=== PATIENT | female | born 1960 | race Hispanic/Latino ===

== ENCOUNTER 2017-12-02 10:51 | Outpatient (CLI) | payer OTHER | END 2017-12-02 10:52 | disposition home or self-care (01) | LOC: BICULT 10:51 → ULT 10:52 | PROVIDERS: ATTEND Psychiatry & Neurology Neurology | DX: Z00.8 Encounter for other general examination (principal); I73.9 Peripheral vascular disease, unspecified; Z53.8 Procedure and treatment not carried out for other reasons | CPT/HCPCS: 93922 ==

== ENCOUNTER 2017-12-06 15:18 | Outpatient (CLI) | payer OTHER | END 2017-12-06 15:19 | disposition home or self-care (01) | LOC: BICRAD 15:18 | PROVIDERS: ATTEND Internal Medicine | DX: Z02.71 Encounter for disability determination (principal); M16.12 Unilateral primary osteoarthritis, left hip ==

== ENCOUNTER 2021-10-02 11:26 | Outpatient (CLI) | payer OTHER ==
[2021-10-02 13:05] LABS: Hemoglobin 9.4 g/dL (12.0-15.5); Mean Corpuscular HGB CONC 33.2 g/dL (32.0-36.0); Mean Corpuscular Hemoglobin 32.3 pg (27.0-33.0); Mean Corpuscular Volume 97.3 fl (81.6-98.3); Mean Platelet Volume 9.3 fl (7.4-10.4); Platelet Count 136 10x3/uL (150-450); RBC Distribution Width 13.7 % (11.5-14.5); Red Blood Cell (RBC) Count 2.91 10x6/uL (3.90-5.03); White Blood Cell (WBC) Count 4.9 10x3/uL (3.5-10.5)
[2021-10-02 13:18] LABS: INR-International Normal Ratio 1.2; PTT 30.3 sec (22.0-33.0)
[2021-10-02 13:24] LABS: Anion Gap 17 mmol/L (10-20); BUN (Urea Nitrogen) 24 mg/dL (9.8-20.1); Calc. Creatinine Clearance 0 mL/min (70-130); Calcium 9.1 mg/dL (7.8-10.44); Carbon Dioxide 25 mmol/L (22-29); Chloride 105 mmol/L (98-107); Glucose 196 mg/dL (70-105); Potassium 4.6 mmol/L (3.5-5.1); Sodium 142 mmol/L (136-145)
== END 2021-10-02 11:27 | disposition home or self-care (01) ==
LOC: LABBT 11:26
PROVIDERS: ATTEND Urology
DX: Z01.818 Encounter for other preprocedural examination (principal); N20.2 Calculus of kidney with calculus of ureter; Z20.822 Contact with and (suspected) exposure to COVID-19
CPT/HCPCS: 80048; 85027; 85610; 85730; 93005; 93010; U0003; U0005

== ENCOUNTER 2021-10-07 08:47 | Day surgery (SDC) | payer OTHER ==
[2021-10-06 09:57] VITALS: BMI 31.7
[2021-10-07] MEDS ORDERED: Iopamidol 30 ML ONE (11:04)
[2021-10-07] MEDS ORDERED: Fentanyl 100 MCG/2 ML VIAL ONE (11:06)
[2021-10-07] MEDS ORDERED: cefTRIAXone\\ROCEPHIN 2 GM VIAL ONE (11:19)
[2021-10-07] MEDS ORDERED: Sodium Chloride 0.9% 100 ML ONE (11:19)
[2021-10-07] MEDS ORDERED: Lidocaine 1% PF 5 ML VIAL ONE (11:24)
[2021-10-07] MEDS ORDERED: Ondansetron PF 4 MG/2 ML Vial ONE (11:24)
[2021-10-07] MEDS ORDERED: Rocuronium Bromide 10 MG/ML (10ML VIAL) ONE (11:24)
[2021-10-07] MEDS ORDERED: Glycopyrrolate 0.2 MG/ML 5 ML SYRINGE ONE (11:24)
[2021-10-07] MEDS ORDERED: Succinylcholine 200 MG/10 ml SYRINGE FS ONE (11:24)
[2021-10-07] MEDS ORDERED: SUGAMMADEX SODIUM 200 MG/2 ML VIAL ONE (12:15)
[2021-10-07] MEDS ORDERED: Oxybutynin 5 MG TAB ONE (12:45)
[2021-10-07] MEDS ORDERED: Phenazopyridine HCl 100 MG TAB ONE (12:45)
[2021-10-07] MEDS ORDERED: Promethazine HCl 25 MG/ML VIAL ONE (12:50)
== END 2021-10-07 17:24 | disposition home or self-care (01) ==
LOC: SDC 08:47
PROVIDERS: ATTEND Urology
PROC: 0T778DZ Dilation of Left Ureter with Intraluminal Device, Via Natural or Artificial Opening Endoscopic (ICD-10-PCS; principal; 2021-10-07)
DX: N20.1 Calculus of ureter (principal); N39.0 Urinary tract infection, site not specified; B96.20 Unspecified Escherichia coli [E. coli] as the cause of diseases classified elsewhere; I13.0 Hypertensive heart and chronic kidney disease with heart failure and stage 1 through stage 4 chronic kidney disease, or unspecified chronic kidney disease; E11.22 Type 2 diabetes mellitus with diabetic chronic kidney disease; N18.9 Chronic kidney disease, unspecified; I50.9 Heart failure, unspecified; I25.10 Atherosclerotic heart disease of native coronary artery without angina pectoris; K21.9 Gastro-esophageal reflux disease without esophagitis; I25.2 Old myocardial infarction; Q61.01 Congenital single renal cyst; I48.91 Unspecified atrial fibrillation; Z87.891 Personal history of nicotine dependence; Z79.02 Long term (current) use of antithrombotics/antiplatelets; Z79.2 Long term (current) use of antibiotics; Z79.4 Long term (current) use of insulin; Z79.82 Long term (current) use of aspirin; Z79.899 Other long term (current) drug therapy; Z88.1 Allergy status to other antibiotic agents; Z88.2 Allergy status to sulfonamides; Z91.048 Other nonmedicinal substance allergy status; Z95.0 Presence of cardiac pacemaker; Z95.1 Presence of aortocoronary bypass graft; Z95.5 Presence of coronary angioplasty implant and graft
CPT/HCPCS: 36416; 74018; 74420; C2617; J0696; J2405; J2550; J3010; J3490; Q9967

== ENCOUNTER 2022-01-15 10:58 | Outpatient (CLI) | payer OTHER | END 2022-01-15 10:59 | disposition home or self-care (01) | LOC: BICULT 10:58 | PROVIDERS: ATTEND Urology | DX: E11.22 Type 2 diabetes mellitus with diabetic chronic kidney disease (principal); N18.9 Chronic kidney disease, unspecified; N20.0 Calculus of kidney; E11.59 Type 2 diabetes mellitus with other circulatory complications; Z87.448 Personal history of other diseases of urinary system | CPT/HCPCS: 76770 ==

== ENCOUNTER 2022-06-11 14:57 | Inpatient (IN) | payer OTHER ==
[2022-06-11] MEDS ORDERED: Acetaminophen 325 MG TAB ONE (16:20)
[2022-06-11 16:34] LABS: #Basophils 0.1 thou/uL (0.0-0.2); #Eosinphils 0.1 thou/uL (0.0-0.7); #Lymphocytes 0.9 thou/uL (1.20-3.40); #Monocytes 0.3 thou/uL (0.11-0.59); #Neutrophils 5.1 thou/uL (1.40-6.50); %Lymphocytes 13.5 % (21.0-51.0); %Monocytes 4.5 % (0.0-10.0); Hemoglobin 6.3 g/dL (12.0-16.0); Mean Corpuscular Hemoglobin 34.1 pg (27.0-31.0); Mean Platelet Volume 7.5 fL (7.4-10.4); Platelet Count 107 10x3/uL (130-400); Red Blood Cell (RBC) Count 1.86 mill/uL (4.20-5.40); White Blood Cell (WBC) Count 6.5 10x3/uL (4.8-10.8)
[2022-06-11 16:42] LABS: INR-International Normal Ratio 1.8; PTT 38.8 sec (22.9-36.1); Prothrombin Time 21.2 sec (12.0-14.7)
[2022-06-11 16:50] LABS: ALT (SGPT) 14 U/L (8-55); AST (SGOT) 13 U/L (5-34); Albumin 2.5 g/dL (3.5-5.0); Alkaline Phosphatase 107 U/L (40-110); Anion Gap 13 mmol/L (10-20); BUN (Urea Nitrogen) 34 mg/dL (9.8-20.1); Bilirubin, Total 1.4 mg/dL (0.2-1.2); Calc. Creatinine Clearance 0 mL/min (70-130); Carbon Dioxide 20 mmol/L (22-29); Chloride 113 mmol/L (98-107); Estimated GFR 28; Globulin 3.2 g/dL (2.4-3.5); Glucose 316 mg/dL (70-105); Protein, Total 5.7 g/dL (6.0-8.3); Sodium 140 mmol/L (136-145)
[2022-06-11] MEDS ORDERED: Insulin Regular 300 UNITS/3 ML VIAL ONE (17:47)
[2022-06-11] MEDS ORDERED: Dextrose 50% Abboject 50 ML SYRINGE ONE (17:48)
[2022-06-11] MEDS ORDERED: Dextrose 5% in Water 1,000 ML IV PRN (17:57)
[2022-06-11] MEDS ORDERED: Dextrose 50% Abboject 50 ML SYRINGE SLOW IVP PRN (17:57)
[2022-06-11] MEDS ORDERED: Ondansetron ODT 4 MG TAB PO PRN (17:57)
[2022-06-11] MEDS ORDERED: Ondansetron PF 4 MG/2 ML Vial IVP PRN (17:57)
[2022-06-11] MEDS ORDERED: Acetaminophen 500 MG TAB PO PRN (18:09)
[2022-06-11] MEDS ORDERED: Pantoprazole 40 MG VIAL IVP SCH ×3 (18:15→22:45)
[2022-06-11 18:26] LABS: Anion Gap 11 mmol/L (10-20); BUN (Urea Nitrogen) 36 mg/dL (9.8-20.1); Calc. Creatinine Clearance 0 mL/min (70-130); Carbon Dioxide 22 mmol/L (22-29); Chloride 112 mmol/L (98-107); Estimated GFR 28; Glucose 305 mg/dL (70-105); Sodium 139 mmol/L (136-145)
[2022-06-11 18:29] LABS: Hemoglobin A1c 8.4 % (4.0-6.0)
[2022-06-11 18:29] LABS: Potassium 6.4 mmol/L (3.5-5.1)
[2022-06-11] MEDS ORDERED: cefTRIAXone\\ROCEPHIN 2 GM VIAL ONE (18:40)
[2022-06-11] MEDS ORDERED: Insulin Regular 300 UNITS/3 ML VIAL IVP SCH (19:00)
[2022-06-11] MEDS ORDERED: Ondansetron PF 4 MG/2 ML Vial ONE (19:31)
[2022-06-11] MEDS: Pantoprazole 40 MG VIAL IVP SCH (21:37)
[2022-06-12 00:34] LABS: Hemoglobin 9.6 g/dL (12.0-16.0); Platelet Count 90 10x3/uL (130-400)
[2022-06-12 00:55] LABS: Anion Gap 12 mmol/L (10-20); BUN (Urea Nitrogen) 45 mg/dL (9.8-20.1); Calc. Creatinine Clearance 20 mL/min (70-130); Calcium 8.2 mg/dL (7.8-10.44); Carbon Dioxide 21 mmol/L (22-29); Chloride 113 mmol/L (98-107); Estimated GFR 27; Glucose 281 mg/dL (70-105); Sodium 140 mmol/L (136-145)
[2022-06-12 00:58] LABS: Potassium 6.2 mmol/L (3.5-5.1)
[2022-06-12] MEDS ORDERED: CALCIUM GLUC 1 GM/NS 50 ML 1 GM in Premix Bag 1 BAG IVPB SCH (01:15)
[2022-06-12] MEDS: Sodium Chloride 0.9% 1,000 ML IV SCH ×2 (01:56→14:19)
[2022-06-12 02:10] LABS: Magnesium 1.6 mg/dL (1.6-2.6)
[2022-06-12 05:53] LABS: Hemoglobin 9.3 g/dL (12.0-16.0)
[2022-06-12 06:09] LABS: Anion Gap 10 mmol/L (10-20); BUN (Urea Nitrogen) 53 mg/dL (9.8-20.1); Calc. Creatinine Clearance 21 mL/min (70-130); Calcium 8.3 mg/dL (7.8-10.44); Carbon Dioxide 20 mmol/L (22-29); Chloride 116 mmol/L (98-107); Estimated GFR 28; Glucose 249 mg/dL (70-105); Sodium 140 mmol/L (136-145)
[2022-06-12] MEDS: Pantoprazole 40 MG VIAL IVP SCH ×2 (08:54→20:36)
[2022-06-12 16:54] LABS: Anion Gap 11 mmol/L (10-20); BUN (Urea Nitrogen) 56 mg/dL (9.8-20.1); Calc. Creatinine Clearance 19 mL/min (70-130); Calcium 8.3 mg/dL (7.8-10.44); Carbon Dioxide 21 mmol/L (22-29); Chloride 116 mmol/L (98-107); Estimated GFR 25; Glucose 233 mg/dL (70-105); Sodium 143 mmol/L (136-145)
[2022-06-12] MEDS ORDERED: Octreotide Acetate 1,250 MCG in Sodium Chloride 0.9% 250 ML 250 ML IVPB SCH (17:00)
[2022-06-12] MEDS ORDERED: Octreotide Acetate 50 MCG/ML AMP SLOW IVP SCH (17:00)
[2022-06-12] MEDS: HumaLOG 300 UNITS/3 ML VIAL SC PRN ×2 (17:39→20:49)
[2022-06-12] MEDS: Gabapentin 300 MG CAP PO SCH (20:35)
[2022-06-13] MEDS: Sodium Chloride 0.9% 1,000 ML IV SCH ×3 (00:35→18:15)
[2022-06-13 05:15] LABS: #Eosinphils 0.1 thou/uL (0.0-0.7); #Lymphocytes 1.3 thou/uL (1.20-3.40); #Monocytes 0.3 thou/uL (0.11-0.59); #Neutrophils 3.1 thou/uL (1.40-6.50); %Basophils 0.8 % (0.0-1.0); %Lymphocytes 26.8 % (21.0-51.0); %Monocytes 6.4 % (0.0-10.0); Hemoglobin 8.4 g/dL (12.0-16.0); Mean Corpuscular HGB CONC 33.7 g/dL (32.0-36.0); Mean Corpuscular Hemoglobin 32.7 pg (27.0-31.0); Mean Corpuscular Volume 97.2 fl (78.0-98.0); Mean Platelet Volume 7.4 fL (7.4-10.4); Platelet Count 92 10x3/uL (130-400); RBC Distribution Width 14.2 % (11.5-14.5); Red Blood Cell (RBC) Count 2.58 mill/uL (4.20-5.40)
[2022-06-13 05:34] LABS: Anion Gap 11 mmol/L (10-20); BUN (Urea Nitrogen) 53 mg/dL (9.8-20.1); Calc. Creatinine Clearance 20 mL/min (70-130); Calcium 7.7 mg/dL (7.8-10.44); Carbon Dioxide 17 mmol/L (22-29); Chloride 117 mmol/L (98-107); Estimated GFR 26; Glucose 141 mg/dL (70-105); Iron 65 ug/dL (50-170); Iron Binding Capacity, Total 281 mcg/dL (265-497); Potassium 5.1 mmol/L (3.5-5.1); Sodium 140 mmol/L (136-145)
[2022-06-13 05:43] VITALS: BMI 37.4
[2022-06-13 05:51] LABS: Ferritin 84.27 ng/mL (10-291)
[2022-06-13 06:02] LABS: HBSAB Concentration Less than 8.00 mIU/mL; Hep B Surf AB Non-Reactive (NonReactive); Hep B Surf Ag Non-Reactive S/CO (NonReactive); Hep C IgG Ab Non-Reactive (NonReactive); Hep C Index 0.29 S/CO (0-0.79)
[2022-06-13] MEDS: Pantoprazole 40 MG VIAL IVP SCH ×2 (08:06→21:48)
[2022-06-13] MEDS ORDERED: Lidocaine 1% MPF 2 ML VIAL ONE (12:17)
[2022-06-13] MEDS ORDERED: PROPOFOL 200 MG/20 ML VIAL ONE (13:15)
[2022-06-13] MEDS ORDERED: Ondansetron HCl/PF 4 MG/2 ML Vial IVP PRN (13:32)
[2022-06-13] MEDS ORDERED: Promethazine HCl 25 MG/ML VIAL IM PRN (13:32)
[2022-06-13] MEDS ORDERED: Propranolol 10 MG TAB PO SCH (14:22)
[2022-06-13] MEDS: HumaLOG 300 UNITS/3 ML VIAL SC PRN ×2 (18:17→21:49)
[2022-06-13] MEDS: Gabapentin 300 MG CAP PO SCH (21:48)
[2022-06-13] MEDS: Propranolol 10 MG TAB PO SCH (21:50)
[2022-06-14 05:14] LABS: #Eosinphils 0.2 thou/uL (0.0-0.7); #Lymphocytes 1.4 thou/uL (1.20-3.40); #Monocytes 0.3 thou/uL (0.11-0.59); #Neutrophils 3.1 thou/uL (1.40-6.50); %Basophils 0.8 % (0.0-1.0); %Eosinophils 3.7 % (0.0-10.0); %Lymphocytes 27.9 % (21.0-51.0); %Monocytes 6.6 % (0.0-10.0); %Neutrophils 61.1 % (42.0-75.0); Hemoglobin 8.2 g/dL (12.0-16.0); Mean Corpuscular HGB CONC 34.2 g/dL (32.0-36.0); Mean Corpuscular Hemoglobin 33.2 pg (27.0-31.0); Mean Corpuscular Volume 97.1 fl (78.0-98.0); Mean Platelet Volume 7.4 fL (7.4-10.4); Platelet Count 88 10x3/uL (130-400); RBC Distribution Width 14.1 % (11.5-14.5); Red Blood Cell (RBC) Count 2.47 mill/uL (4.20-5.40); White Blood Cell (WBC) Count 5.1 10x3/uL (4.8-10.8)
[2022-06-14 05:25] VITALS: TEMP 98.4
[2022-06-14 05:36] LABS: Anion Gap 12 mmol/L (10-20); BUN (Urea Nitrogen) 47 mg/dL (9.8-20.1); Calc. Creatinine Clearance 37 mL/min (70-130); Calcium 7.6 mg/dL (7.8-10.44); Carbon Dioxide 17 mmol/L (22-29); Chloride 117 mmol/L (98-107); Estimated GFR 25; Glucose 144 mg/dL (70-105); Potassium 4.7 mmol/L (3.5-5.1); Sodium 141 mmol/L (136-145)
[2022-06-14 05:56] LABS: HBSAB Concentration Less than 8.00 mIU/mL; Hep B Core Total Ab Non-Reactive (NonReactive); Hep B Core Total Index 0.12 S/CO (0-0.79); Hep B Surf AB Non-Reactive (NonReactive)
[2022-06-14 08:34] VITALS: BP 128/60
[2022-06-14] MEDS: Pantoprazole 40 MG VIAL IVP SCH (10:14)
[2022-06-14] MEDS: Propranolol 10 MG TAB PO SCH (10:14)
[2022-06-14 14:37] LABS: Alpha-1-Antitrypsin 155 mg/dL (101-187)
[2022-06-17 12:02] LABS: EliA Vaculitis New Method **** NEW METHOD ****; Mitochondrial Ab 1.8 U/mL (<4 Negative)
== END 2022-06-14 13:00 | disposition home or self-care (01) | DRG 442 ==
LOC: ERS 14:57 → 2SW 17:54
PROVIDERS: ADMIT Internal Medicine; ATTEND Family Medicine
PROC: 30233N1 Transfusion of Nonautologous Red Blood Cells into Peripheral Vein, Percutaneous Approach (ICD-10-PCS; principal; 2022-06-11)
PROC: 0DB58ZX Excision of Esophagus, Via Natural or Artificial Opening Endoscopic, Diagnostic (ICD-10-PCS; 2022-06-13)
DX: K76.6 Portal hypertension (principal); D62 Acute posthemorrhagic anemia; K92.0 Hematemesis; N17.9 Acute kidney failure, unspecified; I48.20 Chronic atrial fibrillation, unspecified; I13.0 Hypertensive heart and chronic kidney disease with heart failure and stage 1 through stage 4 chronic kidney disease, or unspecified chronic kidney disease; I85.10 Secondary esophageal varices without bleeding; K22.10 Ulcer of esophagus without bleeding; Z20.822 Contact with and (suspected) exposure to COVID-19; E87.5 Hyperkalemia; N18.9 Chronic kidney disease, unspecified; E11.22 Type 2 diabetes mellitus with diabetic chronic kidney disease; E11.42 Type 2 diabetes mellitus with diabetic polyneuropathy; I25.10 Atherosclerotic heart disease of native coronary artery without angina pectoris; I50.9 Heart failure, unspecified; I45.81 Long QT syndrome; K74.60 Unspecified cirrhosis of liver; I86.4 Gastric varices; K31.89 Other diseases of stomach and duodenum; Z95.5 Presence of coronary angioplasty implant and graft; Z95.1 Presence of aortocoronary bypass graft; Z95.0 Presence of cardiac pacemaker; Z87.440 Personal history of urinary (tract) infections; Z91.048 Other nonmedicinal substance allergy status; Z88.2 Allergy status to sulfonamides; Z79.82 Long term (current) use of aspirin; Z79.02 Long term (current) use of antithrombotics/antiplatelets; Z79.899 Other long term (current) drug therapy; Z79.4 Long term (current) use of insulin; Z90.49 Acquired absence of other specified parts of digestive tract; Z90.710 Acquired absence of both cervix and uterus; Z82.3 Family history of stroke; Z82.49 Family history of ischemic heart disease and other diseases of the circulatory system; Z80.0 Family history of malignant neoplasm of digestive organs; Z83.3 Family history of diabetes mellitus
CPT/HCPCS: 36415; 36416; 36430; 76705; 80048; 80053; 82103; 82105; 82728; 83036; 83516; 83540; 83550; 83735; 83880; 85014; 85018; 85025; 85610; 85730; 86015; 86704; 86706; 86708; 86803; 86850; 86900; 86901; 87340; 88305; 88342; 93005; 93010; 96360; 96374; 96375; C9113; J0611; J0696; J0780; J1815; J2354; J2405; J2704; J7050; J7999; P9016; U0003; U0005

== ENCOUNTER 2023-08-29 09:11 | Inpatient (IN) | payer SELFPAY ==
[2023-08-29] MEDS ORDERED: Heparin 10,000 UNITS/ 10 ML VIAL ONE (10:27)
[2023-08-29 11:53] LABS: Bilirubin Small (Negative); Blood, Urine Moderate (Negative); Glucose, Urine (Dipstick) 500 mg/dL (Negative); Ketone, Urine Negative (Negative); Leukocyte Negative (Negative); Nitrite Negative (Negative); Specific Gravity, Urine 1.015 (1.005-1.030); Urobilinogen 0.2 mg/dL (Less than 2); pH, Urine 7.5 (5.0-9.0)
[2023-08-29 12:00] LABS: INR-International Normal Ratio 1.5; PTT 45.4 sec (22.9-36.1); Prothrombin Time 17.8 sec (12.0-14.7)
[2023-08-29 12:04] LABS: Bacteria/HPF None Seen HPF (None Seen); CAUTI Indications for Culture Alt mental st,lethar; RBC/HPF 0-3 HPF (0-3); Squamous Epithelial 0-3 HPF (0-3); WBC/HPF 0-3 HPF (0-3)
[2023-08-29 12:06] LABS: ALT (SGPT) 18 U/L (8-55); AST (SGOT) 26 U/L (5-34); Albumin 2.7 g/dL (3.4-4.8); Alkaline Phosphatase 220 U/L (40-110); Anion Gap 13 mmol/L (10-20); BUN (Urea Nitrogen) 16 mg/dL (9.8-20.1); Bilirubin, Total 1.7 mg/dL (0.2-1.2); Calc. Creatinine Clearance 0 mL/min (70-130); Calcium 8.1 mg/dL (7.8-10.44); Carbon Dioxide 27 mmol/L (23-31); Chloride 101 mmol/L (98-107); Estimated GFR 30; Globulin 3.6 g/dL (2.4-3.5); Glucose 148 mg/dL (80-115); Lipase 39 U/L (8-78); Potassium 3.6 mmol/L (3.5-5.1); Protein, Total 6.3 g/dL (5.8-8.1); Sodium 137 mmol/L (136-145)
[2023-08-29 12:06] LABS: Clarity Clear (Clear); Protein, Urine (Dipstick) 300 mg/dL (Neg-Trace)
[2023-08-29 12:09] LABS: Urine Culture Reflex No No
[2023-08-29 12:09] LABS: Troponin I 0.064 ng/mL (< 0.028)
[2023-08-29 12:09] LABS: #Basophils 0.04 10x3/uL (0.0-0.2); %Basophils 0.9 % (0.0-1.0); %Eosinophils 1.8 % (0.0-10.0); %Lymphocytes 10.2 % (21.0-51.0); %Neutrophils 79.9 % (42.0-75.0); Hematocrit 29.7 % (36.0-47.0); Hemoglobin 9.7 g/dL (12.0-16.0); Mean Corpuscular HGB CONC 32.7 g/dL (32.0-36.0); Mean Corpuscular Hemoglobin 32.3 pg (27.0-31.0); Mean Platelet Volume 9.4 fL (7.4-10.4); Platelet Count 70 10x3/uL (130-400); RBC Distribution Width 13.4 % (11.5-14.5)
[2023-08-29] MEDS ORDERED: Furosemide 40 MG (4 mL) VIAL ONE (12:36)
[2023-08-29] MEDS ORDERED: Aspirin Chewable 81 MG TAB ONE (13:26)
[2023-08-29] MEDS ORDERED: Dextrose 50% Abboject 50 ML SYRINGE SLOW IVP PRN (14:11)
[2023-08-29] MEDS ORDERED: hydrALAZINE 20 MG/ML VIAL SLOW IVP PRN (14:11)
[2023-08-29] MEDS ORDERED: Dextrose 5% in Water 1,000 ML IV PRN (14:11)
[2023-08-29] MEDS ORDERED: Glucagon 1 MG/ML KIT IM PRN (14:11)
[2023-08-29] MEDS ORDERED: Acetaminophen 325 MG TAB PO PRN (14:11)
[2023-08-29 15:34] LABS: Troponin I 0.103 ng/mL (< 0.028)
[2023-08-29 16:26] VITALS: BMI 27.3
[2023-08-29] MEDS: Heparin 5,000 UNITS/ML VIAL SC SCH (17:38)
[2023-08-29 19:04] LABS: Troponin I 0.114 ng/mL (< 0.028)
[2023-08-29] MEDS: HumaLOG 300 UNITS/3 ML VIAL SC PRN (21:06)
[2023-08-30 05:17] LABS: #Basophils 0.03 10x3/uL (0.0-0.2); %Basophils 0.6 % (0.0-1.0); %Eosinophils 2.8 % (0.0-10.0); %Lymphocytes 17.9 % (21.0-51.0); %Monocytes 7.3 % (0.0-10.0); Hematocrit 28.3 % (36.0-47.0); Hemoglobin 9.2 g/dL (12.0-16.0); Mean Corpuscular HGB CONC 32.5 g/dL (32.0-36.0); Mean Corpuscular Hemoglobin 32.4 pg (27.0-31.0); Mean Corpuscular Volume 99.6 fL (78.0-98.0); Mean Platelet Volume 9.9 fL (7.4-10.4); Platelet Count 78 10x3/uL (130-400); RBC Distribution Width 13.6 % (11.5-14.5); Red Blood Cell (RBC) Count 2.84 mill/uL (4.20-5.40)
[2023-08-30 05:32] LABS: Anion Gap 12 mmol/L (10-20); BUN (Urea Nitrogen) 21 mg/dL (9.8-20.1); Calc. Creatinine Clearance 26 mL/min (70-130); Carbon Dioxide 29 mmol/L (23-31); Chloride 100 mmol/L (98-107); Estimated GFR 22; Glucose 197 mg/dL (80-115); Potassium 4.4 mmol/L (3.5-5.1); Sodium 137 mmol/L (136-145)
[2023-08-30] MEDS: Ondansetron PF 4 MG/2 ML Vial IVP PRN (08:06)
[2023-08-30] MEDS: EPOETIN ALFA-EPBX (ESRD) 10,000 UNITS/ML VIAL SC SCH (10:52)
[2023-08-30 11:52] LABS: HBSAB Concentration 39.71 mIU/mL; Hep B Core Total Ab NONREACTIVE (NonReactive); Hep B Core Total Index 0.18 S/CO (0-0.79); Hep B Surf AB REACTIVE (NonReactive); Hep B Surf Ag NONREACTIVE S/CO (NonReactive); Hep C IgG Ab NONREACTIVE S/CO (NonReactive); Hep C Index 0.44 S/CO (0-0.79)
[2023-08-30] MEDS: HumaLOG 300 UNITS/3 ML VIAL SC PRN (12:44)
[2023-08-31 04:38] LABS: #Basophils 0.04 10x3/uL (0.0-0.2); %Basophils 0.8 % (0.0-1.0); %Eosinophils 4.4 % (0.0-10.0); %Lymphocytes 19.3 % (21.0-51.0); %Monocytes 9.1 % (0.0-10.0); Hematocrit 28.5 % (36.0-47.0); Hemoglobin 9.1 g/dL (12.0-16.0); Mean Corpuscular HGB CONC 31.9 g/dL (32.0-36.0); Mean Corpuscular Hemoglobin 32.3 pg (27.0-31.0); Mean Corpuscular Volume 101.1 fL (78.0-98.0); Mean Platelet Volume 9.7 fL (7.4-10.4); Platelet Count 89 10x3/uL (130-400); RBC Distribution Width 13.7 % (11.5-14.5); Red Blood Cell (RBC) Count 2.82 mill/uL (4.20-5.40)
[2023-08-31 04:45] LABS: Anion Gap 12 mmol/L (10-20); BUN (Urea Nitrogen) 30 mg/dL (9.8-20.1); Calc. Creatinine Clearance 21 mL/min (70-130); Calcium 7.8 mg/dL (7.8-10.44); Carbon Dioxide 27 mmol/L (23-31); Chloride 102 mmol/L (98-107); Estimated GFR 17; Glucose 162 mg/dL (80-115); Potassium 4.5 mmol/L (3.5-5.1); Sodium 136 mmol/L (136-145)
[2023-08-31 05:17] LABS: Platelet Adequacy Comment Platelets Decreased
[2023-08-31] MEDS: diphenhydrAMINE 25 MG CAP PO SCH (22:12)
[2023-09-01 11:22] VITALS: BP 177/76; TEMP 98.3
[2023-09-02] MEDS ORDERED: Heparin 10,000 UNITS/ 10 ML VIAL ONE (10:00)
== END 2023-09-01 14:45 | disposition home or self-care (01) | DRG 312 ==
LOC: ERS 09:11 → ERHOLD 13:14 → 2NO 16:06
PROVIDERS: ADMIT Internal Medicine; ATTEND Internal Medicine
DX: R55 Syncope and collapse (principal); N18.6 End stage renal disease; I13.0 Hypertensive heart and chronic kidney disease with heart failure and stage 1 through stage 4 chronic kidney disease, or unspecified chronic kidney disease; E11.22 Type 2 diabetes mellitus with diabetic chronic kidney disease; I25.10 Atherosclerotic heart disease of native coronary artery without angina pectoris; K74.60 Unspecified cirrhosis of liver; I48.91 Unspecified atrial fibrillation; E87.6 Hypokalemia; Z90.49 Acquired absence of other specified parts of digestive tract; Z99.2 Dependence on renal dialysis; Z79.4 Long term (current) use of insulin; Z88.2 Allergy status to sulfonamides; Z79.899 Other long term (current) drug therapy; Z63.1 Problems in relationship with in-laws; Z95.1 Presence of aortocoronary bypass graft; Z95.9 Presence of cardiac and vascular implant and graft, unspecified; Z95.0 Presence of cardiac pacemaker
CPT/HCPCS: 36415; 36416; 51701; 71045; 80048; 80053; 81001; 82140; 83690; 83735; 83880; 84443; 84484; 85025; 85610; 85730; 86704; 86706; 86803; 87340; 93005; 93306; 96374; J1644; J1815; J1940; J2405; Q5105

== ENCOUNTER 2023-09-30 08:13 | Emergency (ER) | payer SELFPAY ==
[2023-09-30] MEDS ORDERED: Prochlorperazine 10 MG/2 ML VIAL ONE (08:39)
[2023-09-30 08:57] LABS: #Basophils 0.05 10x3/uL (0.0-0.2); %Eosinophils 4.8 % (0.0-10.0); %Monocytes 8.3 % (0.0-10.0); %Neutrophils 70.5 % (42.0-75.0); Hematocrit 31.5 % (36.0-47.0); Hemoglobin 10.6 g/dL (12.0-16.0); Mean Corpuscular HGB CONC 33.7 g/dL (32.0-36.0); Mean Corpuscular Hemoglobin 32.6 pg (27.0-31.0); Mean Corpuscular Volume 96.9 fL (78.0-98.0); Mean Platelet Volume 9.6 fL (7.4-10.4); Platelet Count 80 10x3/uL (130-400); RBC Distribution Width 12.8 % (11.5-14.5); Red Blood Cell (RBC) Count 3.25 mill/uL (4.20-5.40)
[2023-09-30 09:12] LABS: ALT (SGPT) 23 U/L (8-55); AST (SGOT) 22 U/L (5-34); Albumin 2.5 g/dL (3.4-4.8); Alkaline Phosphatase 202 U/L (40-110); Anion Gap 8 mmol/L (10-20); BUN (Urea Nitrogen) 18 mg/dL (9.8-20.1); Bilirubin, Total 1.6 mg/dL (0.2-1.2); Calc. Creatinine Clearance 0 mL/min (70-130); Calcium 7.9 mg/dL (7.8-10.44); Carbon Dioxide 26 mmol/L (23-31); Chloride 101 mmol/L (98-107); Estimated GFR 29; Globulin 3.7 g/dL (2.4-3.5); Glucose 198 mg/dL (80-115); Lipase 68 U/L (8-78); Potassium 3.4 mmol/L (3.5-5.1); Protein, Total 6.2 g/dL (5.8-8.1); Sodium 132 mmol/L (136-145)
== END 2023-09-30 10:15 | disposition home or self-care (01) ==
LOC: ERS 08:13
DX: I95.9 Hypotension, unspecified (principal); K74.60 Unspecified cirrhosis of liver; R94.31 Abnormal electrocardiogram [ECG] [EKG]; I12.0 Hypertensive chronic kidney disease with stage 5 chronic kidney disease or end stage renal disease; N18.6 End stage renal disease; E11.22 Type 2 diabetes mellitus with diabetic chronic kidney disease; Z95.0 Presence of cardiac pacemaker; Z79.4 Long term (current) use of insulin; Z99.2 Dependence on renal dialysis
CPT/HCPCS: 36415; 36416; 70450; 80053; 83690; 83735; 84443; 85025; 93005; 94760; 96374; J0780

== ENCOUNTER 2024-01-04 09:31 | Inpatient (IN) | payer MEDICARE, SELFPAY ==
[2024-01-04 10:24] LABS: #Basophils 0.04 10x3/uL (0.0-0.2); %Basophils 0.9 % (0.0-1.0); %Eosinophils 2.7 % (0.0-10.0); %Lymphocytes 19.6 % (21.0-51.0); %Monocytes 7.4 % (0.0-10.0); %Neutrophils 68.5 % (42.0-75.0); Hematocrit 30.5 % (36.0-47.0); Hemoglobin 9.9 g/dL (12.0-16.0); Mean Corpuscular HGB CONC 32.5 g/dL (32.0-36.0); Mean Corpuscular Hemoglobin 32.4 pg (27.0-31.0); Mean Corpuscular Volume 99.7 fL (78.0-98.0); Mean Platelet Volume 9.8 fL (7.4-10.4); Platelet Count 70 10x3/uL (130-400); RBC Distribution Width 13.7 % (11.5-14.5); Red Blood Cell (RBC) Count 3.06 mill/uL (4.20-5.40)
[2024-01-04 10:47] LABS: ALT (SGPT) 21 U/L (8-55); AST (SGOT) 18 U/L (5-34); Albumin 2.2 g/dL (3.4-4.8); Alkaline Phosphatase 136 U/L (40-110); Anion Gap 11 mmol/L (10-20); BUN (Urea Nitrogen) 10 mg/dL (9.8-20.1); Bilirubin, Total 1.5 mg/dL (0.2-1.2); Calc. Creatinine Clearance 0 mL/min (70-130); Carbon Dioxide 28 mmol/L (23-31); Chloride 103 mmol/L (98-107); Estimated GFR 27; Globulin 3.8 g/dL (2.4-3.5); Glucose 155 mg/dL (80-115); Potassium 3.4 mmol/L (3.5-5.1); Sodium 139 mmol/L (136-145)
[2024-01-04 11:10] LABS: Troponin I 0.038 ng/mL (< 0.028)
[2024-01-04] MEDS ORDERED: Acetaminophen 325 MG TAB PO PRN (12:42)
[2024-01-04] MEDS ORDERED: traMADol HCl 50 MG TAB PO PRN (12:42)
[2024-01-04] MEDS ORDERED: Dextrose 50% Abboject 50 ML SYRINGE SLOW IVP PRN (12:52)
[2024-01-04] MEDS ORDERED: Glucagon 1 MG/ML KIT IM PRN (12:52)
[2024-01-04] MEDS ORDERED: Dextrose 5% in Water 1,000 ML IV PRN (12:52)
[2024-01-04] MEDS ORDERED: EPOETIN ALFA-EPBX (ESRD) 10,000 UNITS/ML VIAL FS SCH (17:30)
[2024-01-04] MEDS: EPOETIN ALFA-EPBX (ESRD) 10,000 UNITS/ML VIAL SC SCH (18:08)
[2024-01-04 19:33] VITALS: BMI 26.9
[2024-01-04 19:53] LABS: #Basophils 0.05 10x3/uL (0.0-0.2); %Basophils 1.2 % (0.0-1.0); %Eosinophils 1.4 % (0.0-10.0); %Lymphocytes 17.9 % (21.0-51.0); %Monocytes 9.2 % (0.0-10.0); %Neutrophils 70.1 % (42.0-75.0); Hematocrit 35.9 % (36.0-47.0); Hemoglobin 10.7 g/dL (12.0-16.0); Mean Corpuscular HGB CONC 29.8 g/dL (32.0-36.0); Mean Corpuscular Hemoglobin 33.2 pg (27.0-31.0); Mean Corpuscular Volume 111.5 fL (78.0-98.0); Mean Platelet Volume 12.4 fL (7.4-10.4); Platelet Count 101 10x3/uL (130-400); RBC Distribution Width 14.2 % (11.5-14.5); Red Blood Cell (RBC) Count 3.22 mill/uL (4.20-5.40)
[2024-01-04] MEDS: Insulin Lispro 100 UNIT/ML 10 ML VIAL SC PRN (22:00)
[2024-01-05 06:07] LABS: #Basophils 0.04 10x3/uL (0.0-0.2); %Basophils 0.8 % (0.0-1.0); %Eosinophils 2.9 % (0.0-10.0); %Lymphocytes 20.8 % (21.0-51.0); %Neutrophils 63.9 % (42.0-75.0); Hematocrit 31.5 % (36.0-47.0); Hemoglobin 10.1 g/dL (12.0-16.0); Mean Corpuscular HGB CONC 32.1 g/dL (32.0-36.0); Mean Corpuscular Hemoglobin 32.9 pg (27.0-31.0); Mean Corpuscular Volume 102.6 fL (78.0-98.0); Mean Platelet Volume 10.2 fL (7.4-10.4); Platelet Count 73 10x3/uL (130-400); RBC Distribution Width 13.8 % (11.5-14.5); Red Blood Cell (RBC) Count 3.07 mill/uL (4.20-5.40)
[2024-01-05 06:26] LABS: ALT (SGPT) 20 U/L (8-55); AST (SGOT) 16 U/L (5-34); Albumin 2.2 g/dL (3.4-4.8); Alkaline Phosphatase 129 U/L (40-110); Anion Gap 12 mmol/L (10-20); BUN (Urea Nitrogen) 24 mg/dL (9.8-20.1); Bilirubin, Total 1.2 mg/dL (0.2-1.2); Calc. Creatinine Clearance 16 mL/min (70-130); Calcium 8.2 mg/dL (7.8-10.44); Carbon Dioxide 26 mmol/L (23-31); Chloride 105 mmol/L (98-107); Estimated GFR 14; Globulin 3.6 g/dL (2.4-3.5); Glucose 213 mg/dL (80-115); Potassium 5.1 mmol/L (3.5-5.1); Protein, Total 5.8 g/dL (5.8-8.1); Sodium 138 mmol/L (136-145)
[2024-01-05 08:58] LABS: Troponin I 0.036 ng/mL (< 0.028)
[2024-01-05] MEDS: Propranolol 10 MG TAB PO SCH (09:26)
[2024-01-05 11:43] VITALS: TEMP 98.2
[2024-01-05] MEDS ORDERED: hydrALAZINE 20 MG/ML VIAL SLOW IVP PRN (14:09)
[2024-01-05 14:18] VITALS: BP 162/68
[2024-01-05] MEDS ORDERED: Insulin Glargine 30 UNITS/0.3 ML VIAL SC SCH (21:00)
[2024-01-06] MEDS ORDERED: Pantoprazole DR 40 MG TAB PO SCH (09:00)
== END 2024-01-05 15:28 | disposition home or self-care (01) | DRG 312 ==
LOC: ERS 09:31 → ERHOLD 11:44 → 2NO 11:45
PROVIDERS: ADMIT Internal Medicine; ATTEND Internal Medicine
DX: I95.3 Hypotension of hemodialysis (principal); N18.6 End stage renal disease; I12.0 Hypertensive chronic kidney disease with stage 5 chronic kidney disease or end stage renal disease; I08.1 Rheumatic disorders of both mitral and tricuspid valves; I25.10 Atherosclerotic heart disease of native coronary artery without angina pectoris; E11.22 Type 2 diabetes mellitus with diabetic chronic kidney disease; K74.60 Unspecified cirrhosis of liver; D64.9 Anemia, unspecified; Z88.1 Allergy status to other antibiotic agents; Z91.013 Allergy to seafood; Z91.048 Other nonmedicinal substance allergy status; Z99.2 Dependence on renal dialysis; Z79.899 Other long term (current) drug therapy; Z90.49 Acquired absence of other specified parts of digestive tract; Z90.710 Acquired absence of both cervix and uterus; Z95.1 Presence of aortocoronary bypass graft; Z95.0 Presence of cardiac pacemaker; Z95.5 Presence of coronary angioplasty implant and graft; Z79.4 Long term (current) use of insulin
CPT/HCPCS: 36415; 36416; 71045; 80053; 83970; 84100; 84484; 85025; 93005; 93306; J1815; Q5105

== ENCOUNTER 2024-01-27 19:16 | Observation (INO) | payer MEDICARE, OTHER ==
[2024-01-27 20:34] LABS: #Basophils 0.06 10x3/uL (0.0-0.2); %Eosinophils 1.4 % (0.0-10.0); %Lymphocytes 9.7 % (21.0-51.0); %Monocytes 10.4 % (0.0-10.0); %Neutrophils 76.6 % (42.0-75.0); Hematocrit 32.4 % (36.0-47.0); Hemoglobin 10.6 g/dL (12.0-16.0); Mean Corpuscular HGB CONC 32.7 g/dL (32.0-36.0); Mean Corpuscular Volume 100.9 fL (78.0-98.0); Mean Platelet Volume 8.9 fL (7.4-10.4); Platelet Count 102 10x3/uL (130-400); RBC Distribution Width 14.5 % (11.5-14.5); Red Blood Cell (RBC) Count 3.21 mill/uL (4.20-5.40)
[2024-01-27] MEDS ORDERED: HYDROcodone/Acetaminophen 5/325 mg Tablet ONE (20:46)
[2024-01-27 20:50] LABS: ALT (SGPT) 23 U/L (8-55); AST (SGOT) 21 U/L (5-34); Albumin 2.4 g/dL (3.4-4.8); Alkaline Phosphatase 162 U/L (40-110); Anion Gap 14 mmol/L (10-20); BUN (Urea Nitrogen) 13 mg/dL (9.8-20.1); Bilirubin, Total 1.3 mg/dL (0.2-1.2); Calc. Creatinine Clearance 0 mL/min (70-130); Calcium 8.2 mg/dL (7.8-10.44); Carbon Dioxide 28 mmol/L (23-31); Chloride 99 mmol/L (98-107); Estimated GFR 25; Globulin 3.7 g/dL (2.4-3.5); Glucose 259 mg/dL (80-115); Potassium 3.4 mmol/L (3.5-5.1); Protein, Total 6.1 g/dL (5.8-8.1); Sodium 138 mmol/L (136-145)
[2024-01-27] MEDS ORDERED: Morphine 2 MG/ML VIAL ONE (22:25)
[2024-01-27] MEDS ORDERED: Lorazepam 2 MG/ML VIAL ONE (23:06)
[2024-01-27] MEDS ORDERED: Dextrose 50% Abboject 50 ML SYRINGE SLOW IVP PRN (23:41)
[2024-01-27] MEDS ORDERED: Glucagon 1 MG/ML KIT IM PRN (23:41)
[2024-01-27] MEDS ORDERED: Dextrose 5% in Water 1,000 ML IV PRN (23:41)
[2024-01-27] MEDS ORDERED: Ondansetron PF 4 MG/2 ML Vial IVP PRN (23:52)
[2024-01-27] MEDS ORDERED: Ipratropium/Albuterol 3 ML NEB NEB PRN (23:52)
[2024-01-27] MEDS ORDERED: hydrALAZINE 20 MG/ML VIAL SLOW IVP PRN (23:52)
[2024-01-27] MEDS ORDERED: Acetaminophen 325 MG TAB PO PRN (23:52)
[2024-01-27] MEDS ORDERED: Morphine 4 MG/ML VIAL SLOW IVP PRN (23:52)
[2024-01-28] MEDS ORDERED: Glucagon 1 MG/ML KIT IM PRN (01:56)
[2024-01-28] MEDS ORDERED: Dextrose 50% Abboject 50 ML SYRINGE SLOW IVP PRN (01:56)
[2024-01-28] MEDS ORDERED: Dextrose 5% in Water 1,000 ML IV PRN (01:56)
[2024-01-28] MEDS: Cyclobenzaprine 10 MG TAB PO PRN (03:11)
[2024-01-28 03:15] VITALS: BMI 28.8
[2024-01-28] MEDS ORDERED: Loratadine 10 MG TAB PO PRN (03:23)
[2024-01-28] MEDS ORDERED: Insulin Lispro 100 UNIT/ML 10 ML VIAL SC PRN (03:25)
[2024-01-28 04:56] LABS: #Basophils 0.05 10x3/uL (0.0-0.2); %Eosinophils 2.7 % (0.0-10.0); %Lymphocytes 17.6 % (21.0-51.0); %Neutrophils 67.3 % (42.0-75.0); Hematocrit 29.5 % (36.0-47.0); Hemoglobin 9.9 g/dL (12.0-16.0); Mean Corpuscular HGB CONC 33.6 g/dL (32.0-36.0); Mean Corpuscular Volume 98.3 fL (78.0-98.0); Mean Platelet Volume 9.2 fL (7.4-10.4); Platelet Count 93 10x3/uL (130-400); RBC Distribution Width 14.6 % (11.5-14.5)
[2024-01-28 05:16] LABS: Anion Gap 9 mmol/L (10-20); BUN (Urea Nitrogen) 13 mg/dL (9.8-20.1); Calc. Creatinine Clearance 27 mL/min (70-130); Calcium 7.9 mg/dL (7.8-10.44); Carbon Dioxide 29 mmol/L (23-31); Chloride 102 mmol/L (98-107); Estimated GFR 23; Glucose 142 mg/dL (80-115); Potassium 3.3 mmol/L (3.5-5.1); Sodium 137 mmol/L (136-145)
[2024-01-28] MEDS: traMADol HCl 50 MG TAB PO PRN (08:30)
[2024-01-28] MEDS: Insulin Glargine 30 UNITS/0.3 ML VIAL SC SCH (08:31)
[2024-01-28] MEDS: Pantoprazole DR 40 MG TAB PO SCH (08:31)
[2024-01-28] MEDS: Propranolol 10 MG TAB PO SCH (08:31)
[2024-01-28] MEDS: Enoxaparin 30 MG (0.3 mL) SYRINGE SC SCH (08:31)
[2024-01-28] MEDS: Methocarbamol 500 MG TAB PO PRN (11:23)
[2024-01-28 15:34] VITALS: BP 150/69; TEMP 98.9
== END 2024-01-28 16:03 ==
LOC: ERS 19:16 → SURG B 23:38 → ERS 01-28 00:24 → ERHOLD 01-28 03:00 → SURG B 01-28 03:01
PROVIDERS: ADMIT Surgery; ATTEND Surgery
DX: S32.592A Other specified fracture of left pubis, initial encounter for closed fracture (principal); S32.692A Other specified fracture of left ischium, initial encounter for closed fracture; M21.962 Unspecified acquired deformity of left lower leg; I12.0 Hypertensive chronic kidney disease with stage 5 chronic kidney disease or end stage renal disease; E11.22 Type 2 diabetes mellitus with diabetic chronic kidney disease; N18.6 End stage renal disease; I25.10 Atherosclerotic heart disease of native coronary artery without angina pectoris; I48.91 Unspecified atrial fibrillation; K74.60 Unspecified cirrhosis of liver; Z95.0 Presence of cardiac pacemaker; Z95.5 Presence of coronary angioplasty implant and graft; Z90.710 Acquired absence of both cervix and uterus; Z90.89 Acquired absence of other organs; Z90.49 Acquired absence of other specified parts of digestive tract; Z99.2 Dependence on renal dialysis; Z88.1 Allergy status to other antibiotic agents; Z88.2 Allergy status to sulfonamides; Z91.048 Other nonmedicinal substance allergy status; Z79.4 Long term (current) use of insulin; Z79.899 Other long term (current) drug therapy; W01.0XXA Fall on same level from slipping, tripping and stumbling without subsequent striking against object, initial encounter; Y92.091 Bathroom in other non-institutional residence as the place of occurrence of the external cause
CPT/HCPCS: 72128; 72131; 72192; 73552; 73590; 80048; 80053; 82962; 85025 ×2; 96374; 96375; 99285; G0378; J2060; J2272; 36415; 36416; G0390; J1815

== ENCOUNTER 2024-04-20 08:20 | Emergency (ER) | payer MEDICARE, OTHER ==
[2024-04-20 09:18] LABS: ALT (SGPT) 15 U/L (8-55); AST (SGOT) 16 U/L (5-34); Albumin 2.5 g/dL (3.4-4.8); Alkaline Phosphatase 170 U/L (40-110); Anion Gap 12 mmol/L (10-20); BUN (Urea Nitrogen) 10 mg/dL (9.8-20.1); Bilirubin, Total 1.5 mg/dL (0.2-1.2); Calc. Creatinine Clearance 0 mL/min (70-130); Carbon Dioxide 25 mmol/L (23-31); Chloride 100 mmol/L (98-107); Estimated GFR 28; Globulin 3.9 g/dL (2.4-3.5); Glucose 185 mg/dL (80-115); Potassium 2.8 mmol/L (3.5-5.1); Protein, Total 6.4 g/dL (5.8-8.1); Sodium 134 mmol/L (136-145)
[2024-04-20 09:21] LABS: #Basophils 0.04 10x3/uL (0.0-0.2); %Basophils 0.8 % (0.0-1.0); %Eosinophils 1.3 % (0.0-10.0); %Lymphocytes 18.3 % (21.0-51.0); %Monocytes 5.5 % (0.0-10.0); %Neutrophils 73.5 % (42.0-75.0); Hemoglobin 10.8 g/dL (12.0-16.0); Mean Corpuscular HGB CONC 33.8 g/dL (32.0-36.0); Mean Corpuscular Hemoglobin 32.4 pg (27.0-31.0); Mean Corpuscular Volume 96.1 fL (78.0-98.0); Mean Platelet Volume 9.6 fL (7.4-10.4); Platelet Count 81 10x3/uL (130-400); RBC Distribution Width 14.1 % (11.5-14.5); Red Blood Cell (RBC) Count 3.33 mill/uL (4.20-5.40)
[2024-04-20 09:46] LABS: Platelet Adequacy Comment Platelets Decreased; Polychromasia SLIGHT = 2-3 cells HPF (0-2)
== END 2024-04-20 11:17 | disposition home or self-care (01) ==
LOC: ERS 08:20
DX: T36.8X1A Poisoning by other systemic antibiotics, accidental (unintentional), initial encounter (principal); I12.0 Hypertensive chronic kidney disease with stage 5 chronic kidney disease or end stage renal disease; N18.6 End stage renal disease; E11.22 Type 2 diabetes mellitus with diabetic chronic kidney disease; Z99.2 Dependence on renal dialysis
CPT/HCPCS: 36415; 80053; 85025; 93005; 99284

== ENCOUNTER 2025-03-13 08:10 | Emergency (ER) | payer MEDICARE, OTHER ==
[2025-03-13 08:38] LABS: #Basophils 0.03 10x3/uL (0.0-0.2); #Eosinophils 0.09 10x3/uL (0.0-0.7); #Monocytes 0.40 10x3/uL (0.11-0.59); #Neutrophils 3.16 10x3/uL (1.40-6.50); %Basophils 0.7 % (0.0-1.0); %Eosinophils 2.1 % (0.0-10.0); %Lymphocytes 15.1 % (21.0-51.0); %Monocytes 9.2 % (0.0-10.0); %Neutrophils 72.4 % (42.0-75.0); Hematocrit 30.5 % (36.0-47.0); Hemoglobin 9.8 g/dL (12.0-16.0); Mean Corpuscular Hemoglobin 30.8 pg (27.0-31.0); Mean Corpuscular Volume 95.9 fL (78.0-98.0); Platelet Count 55 10x3/uL (130-400); Red Blood Cell (RBC) Count 3.18 mill/uL (4.20-5.40); White Blood Cell (WBC) Count 4.36 10x3/uL (4.8-10.8)
[2025-03-13 08:50] LABS: Anion Gap 20 mmol/L (10-20); BUN (Urea Nitrogen) 42 mg/dL (9.8-20.1); Calc. Creatinine Clearance 0 mL/min (70-130); Carbon Dioxide 23 mmol/L (23-31); Chloride 99 mmol/L (98-107); Potassium 4.2 mmol/L (3.5-5.1); Sodium 138 mmol/L (136-145)
[2025-03-13 08:51] LABS: ALT (SGPT) 22 U/L (Less than 34); AST (SGOT) 21 U/L (11-34); Albumin 3.1 g/dL (3.1-4.5); Alkaline Phosphatase 183 U/L (40-110); Bilirubin, Total 1.3 mg/dL (0.3-1.2); Calcium 8.5 mg/dL (7.8-10.44); Globulin 4.2 g/dL (2.4-3.5); Glucose 269 mg/dL (80-115)
[2025-03-13 09:05] LABS: Anisocytosis SLIGHT = 6-15 cells HPF (0-5); Macrocytosis SLIGHT = 6-15 cells HPF (0-5); Platelet Adequacy Comment Platelets Decreased
[2025-03-13 09:58] LABS: Lipase 64 U/L (8-78); Magnesium 2.6 mg/dL (1.6-2.6)
== END 2025-03-13 16:02 | disposition home or self-care (01) ==
LOC: ERS 08:10
DX: R53.1 Weakness (principal); I12.0 Hypertensive chronic kidney disease with stage 5 chronic kidney disease or end stage renal disease; N18.6 End stage renal disease; E11.22 Type 2 diabetes mellitus with diabetic chronic kidney disease; Z99.2 Dependence on renal dialysis; Z95.0 Presence of cardiac pacemaker
CPT/HCPCS: 71045; 80053; 83690; 83735; 84484; 85025; 93005

== ENCOUNTER 2025-03-18 08:16 | Inpatient (IN) | payer OTHER ==
[2025-03-18 09:08] LABS: ALT (SGPT) 25 U/L (Less than 34); AST (SGOT) 21 U/L (11-34); Albumin 3.1 g/dL (3.1-4.5); Alkaline Phosphatase 169 U/L (40-110); Anion Gap 18 mmol/L (10-20); BUN (Urea Nitrogen) 35 mg/dL (9.8-20.1); Bilirubin, Total 1.6 mg/dL (0.3-1.2); Calc. Creatinine Clearance 0 mL/min (70-130); Calcium 8.7 mg/dL (7.8-10.44); Carbon Dioxide 25 mmol/L (23-31); Chloride 97 mmol/L (98-107); Globulin 4.3 g/dL (2.4-3.5); Glucose 181 mg/dL (80-115); Magnesium 2.3 mg/dL (1.6-2.6); Potassium 3.9 mmol/L (3.5-5.1); Sodium 136 mmol/L (136-145)
[2025-03-18] MEDS ORDERED: levETIRAcetam 500 MG (5 mL) VIAL ONE (09:49)
[2025-03-18 10:11] LABS: Burr Cells SLIGHT = 2-5 cells HPF (0-1); Platelet Adequacy Comment Platelets Decreased; Polychromasia SLIGHT = 2-3 cells HPF (0-2)
[2025-03-18 10:17] LABS: #Basophils 0.03 10x3/uL (0.0-0.2); #Eosinophils 0.07 10x3/uL (0.0-0.7); #Monocytes 0.28 10x3/uL (0.11-0.59); #Neutrophils 2.83 10x3/uL (1.40-6.50); %Basophils 0.8 % (0.0-1.0); %Eosinophils 1.8 % (0.0-10.0); %Lymphocytes 17.0 % (21.0-51.0); %Monocytes 7.2 % (0.0-10.0); %Neutrophils 72.9 % (42.0-75.0); Hematocrit 29.8 % (36.0-47.0); Hemoglobin 9.7 g/dL (12.0-16.0); Mean Corpuscular Hemoglobin 30.2 pg (27.0-31.0); Mean Corpuscular Volume 92.8 fL (78.0-98.0); Platelet Count 79 10x3/uL (130-400); Red Blood Cell (RBC) Count 3.21 mill/uL (4.20-5.40); White Blood Cell (WBC) Count 3.88 10x3/uL (4.8-10.8)
[2025-03-18] MEDS ORDERED: Dextrose 50% Abboject 50 ML SYRINGE SLOW IVP PRN (11:25)
[2025-03-18] MEDS ORDERED: Glucagon 1 MG/ML KIT IM PRN (11:25)
[2025-03-18] MEDS ORDERED: Rocuronium Bromide 10 MG/ML (10ML VIAL) ONE (12:56)
[2025-03-18 13:03] LABS: Cocaine Metabolite Screen Negative (Negative); THC/Cannabinoid Screen Negative (Negative); Tricyclic Screen Negative (Negative)
[2025-03-18 13:40] LABS: Actual Bicarbonate (HCO3a) 23.4 mEq/L (22-28); Analyzer IN Cardio ER; Base Excess (BEa) 3.1 mEq/L (-2.0 to +3.0); Calcium, Ionized (arterial) 1.05 mmol/L (1.12-1.30); Hematocrit-ABG 33 % (36.0-47.0); Hemoglobin (Hb) 11.1 g/dL (12.0-16.0); O2 Tension (PaO2), arterial 402.3 mmHg (> 80.0); Potassium - ABG Lab 4.21 mmol/L (3.70-5.30)
[2025-03-18 13:47] LABS: CO2 Tension 23.6 mmHg (35.0-45.0); Puncture Site RR; pH, Arterial 7.614 (7.35-7.45)
[2025-03-18 15:29] LABS: Acetaminophen Less than 10 mcg/mL (Less than 10); Salicylate Less than 8.0 mg/dL (Less than 8.0)
[2025-03-18] MEDS ORDERED: VANCOMYCIN 1.25 GM/250 ML BAG IVPB SCH (16:30)
[2025-03-18 17:39] LABS: Glucose, Urine (Dipstick) 250 mg/dL (Negative); Leukocyte Negative (Negative); Protein, Urine (Dipstick) > or equal to 300 mg/dL (Neg-Trace); Specific Gravity, Urine 1.015 (1.005-1.030)
[2025-03-18 17:45] LABS: Bacteria/HPF None Seen HPF (None Seen); CAUTI Indications for Culture Alt mental st,lethar; WBC/HPF 0-3 HPF (0-3)
[2025-03-18 17:47] LABS: Urine Culture Reflex No No
[2025-03-18 17:50] LABS: Cocaine Metabolite Screen Negative (Negative); THC/Cannabinoid Screen Negative (Negative); Tricyclic Screen Negative (Negative)
[2025-03-18] MEDS ORDERED: Fentanyl BOLUS 100 ML IVPB PRN (18:00)
[2025-03-18] MEDS ORDERED: DISCONTINUE PREVIOUS NARCOTIC PAIN MEDICATIONS AND BENZODIAZEPINES FS SCH (18:00)
[2025-03-18] MEDS ORDERED: Propofol BOLUS 1,000 MG/100 ML VIAL IV PRN (18:00)
[2025-03-18] MEDS: cefTRIAXone\\ROCEPHIN 2 GM in Sodium Chloride 0.9% 100 ML IVPB SCH (18:42)
[2025-03-18] MEDS: Vancomycin 1.25 GM / NS 250 ML VIAL-2-BAG IVPB SCH (18:43)
[2025-03-18] MEDS: levETIRAcetam 500 MG (5 mL) VIAL SLOW IVP SCH (19:59)
[2025-03-18] MEDS ORDERED: levETIRAcetam 500 MG TAB PO SCH (21:00)
[2025-03-19 03:18] LABS: #Basophils Less than 0.03 10x3/uL (0.0-0.2); #Eosinophils 0.04 10x3/uL (0.0-0.7); #Monocytes 0.37 10x3/uL (0.11-0.59); #Neutrophils 3.97 10x3/uL (1.40-6.50); %Basophils 0.4 % (0.0-1.0); %Eosinophils 0.8 % (0.0-10.0); %Lymphocytes 11.6 % (21.0-51.0); %Monocytes 7.4 % (0.0-10.0); %Neutrophils 79.6 % (42.0-75.0); Hematocrit 30.4 % (36.0-47.0); Hemoglobin 9.6 g/dL (12.0-16.0); Mean Corpuscular Hemoglobin 30.6 pg (27.0-31.0); Mean Corpuscular Volume 96.8 fL (78.0-98.0); Platelet Count 72 10x3/uL (130-400); Red Blood Cell (RBC) Count 3.14 mill/uL (4.20-5.40); White Blood Cell (WBC) Count 4.99 10x3/uL (4.8-10.8)
[2025-03-19 03:50] LABS: ALT (SGPT) 17 U/L (Less than 34); AST (SGOT) 23 U/L (11-34); Albumin 2.3 g/dL (3.1-4.5); Alkaline Phosphatase 130 U/L (40-110); Anion Gap 18 mmol/L (10-20); BUN (Urea Nitrogen) 41 mg/dL (9.8-20.1); Bilirubin, Total 1.1 mg/dL (0.3-1.2); Calc. Creatinine Clearance 9 mL/min (70-130); Calcium 8.4 mg/dL (7.8-10.44); Carbon Dioxide 23 mmol/L (23-31); Chloride 102 mmol/L (98-107); Globulin 3.6 g/dL (2.4-3.5); Glucose 109 mg/dL (80-115); Magnesium 2.2 mg/dL (1.6-2.6); Potassium 4.3 mmol/L (3.5-5.1); Sodium 139 mmol/L (136-145)
[2025-03-19] MEDS: DC Sedation Protocol FS ONE (10:07)
[2025-03-19 12:23] LABS: HBSAB Concentration Less than 8.00 mIU/mL; Hep B Core Total Ab NONREACTIVE (NonReactive); Hep B Core Total Index 0.11 S/CO (0-0.79); Hep B Surf Ag NONREACTIVE S/CO (NonReactive); Hep C IgG Ab Reflex HepC Qnt S/CO (NonReactive); Hep C Index 1.12 S/CO (0-0.79)
[2025-03-19] MEDS ORDERED: hydrALAZINE 20 MG/ML VIAL SLOW IVP PRN (18:14)
[2025-03-19] MEDS: Acetaminophen 325 MG TAB PO PRN (20:34)
[2025-03-20 05:01] LABS: #Basophils 0.05 10x3/uL (0.0-0.2); #Eosinophils 0.14 10x3/uL (0.0-0.7); #Monocytes 0.36 10x3/uL (0.11-0.59); #Neutrophils 6.46 10x3/uL (1.40-6.50); %Basophils 0.7 % (0.0-1.0); %Eosinophils 1.8 % (0.0-10.0); %Lymphocytes 7.9 % (21.0-51.0); %Monocytes 4.7 % (0.0-10.0); %Neutrophils 84.8 % (42.0-75.0); Hematocrit 32.5 % (36.0-47.0); Hemoglobin 10.0 g/dL (12.0-16.0); Mean Corpuscular Hemoglobin 30.6 pg (27.0-31.0); Mean Corpuscular Volume 99.4 fL (78.0-98.0); Platelet Count 70 10x3/uL (130-400); Red Blood Cell (RBC) Count 3.27 mill/uL (4.20-5.40); White Blood Cell (WBC) Count 7.62 10x3/uL (4.8-10.8)
[2025-03-20 05:14] LABS: Anion Gap 17 mmol/L (10-20); BUN (Urea Nitrogen) 50 mg/dL (9.8-20.1); Calc. Creatinine Clearance 8 mL/min (70-130); Calcium 8.4 mg/dL (7.8-10.44); Carbon Dioxide 23 mmol/L (23-31); Chloride 101 mmol/L (98-107); Glucose 163 mg/dL (80-115); Potassium 4.5 mmol/L (3.5-5.1); Sodium 136 mmol/L (136-145)
[2025-03-20 07:34] LABS: Vancomycin, Trough 18.3 ug/mL
[2025-03-20] MEDS: levETIRAcetam 500 MG TAB PO SCH (08:35)
[2025-03-20] MEDS: EPOETIN ALFA-EPBX (ESRD) 10,000 UNITS/ML VIAL IVP SCH (11:57)
[2025-03-20 14:36] VITALS: BMI 26.9
[2025-03-20] MEDS: Transdermal Patch Removal TOP SCH (20:28)
[2025-03-21 06:59] LABS: Anion Gap 13 mmol/L (10-20); BUN (Urea Nitrogen) 25 mg/dL (9.8-20.1); Calc. Creatinine Clearance 12 mL/min (70-130); Calcium 8.1 mg/dL (7.8-10.44); Carbon Dioxide 28 mmol/L (23-31); Chloride 98 mmol/L (98-107); Glucose 227 mg/dL (80-115); Potassium 4.0 mmol/L (3.5-5.1); Sodium 135 mmol/L (136-145)
[2025-03-21 07:00] LABS: #Basophils 0.03 10x3/uL (0.0-0.2); #Eosinophils 0.12 10x3/uL (0.0-0.7); #Monocytes 0.41 10x3/uL (0.11-0.59); #Neutrophils 3.32 10x3/uL (1.40-6.50); %Basophils 0.7 % (0.0-1.0); %Eosinophils 2.6 % (0.0-10.0); %Lymphocytes 15.3 % (21.0-51.0); %Monocytes 8.9 % (0.0-10.0); %Neutrophils 72.3 % (42.0-75.0); Hematocrit 30.4 % (36.0-47.0); Hemoglobin 9.6 g/dL (12.0-16.0); Mean Corpuscular Hemoglobin 30.8 pg (27.0-31.0); Mean Corpuscular Volume 97.4 fL (78.0-98.0); Platelet Count 67 10x3/uL (130-400); Red Blood Cell (RBC) Count 3.12 mill/uL (4.20-5.40); White Blood Cell (WBC) Count 4.59 10x3/uL (4.8-10.8)
[2025-03-21] MEDS: Folic Acid/Vit B Comp W-C PO SCH (10:07)
[2025-03-21] MEDS: Insulin Glargine 30 UNITS/0.3 ML VIAL SC SCH (10:07)
[2025-03-21] MEDS: Propranolol 10 MG TAB PO SCH (10:07)
[2025-03-21] MEDS: Pantoprazole 40 MG DR.TAB PO SCH (10:07)
[2025-03-21 17:15] LABS: Hep C PCR-Quant HCV Not Detected IU/mL (.)
[2025-03-22 11:37] VITALS: BP 131/69
[2025-03-22 20:03] VITALS: TEMP 97.8
== END 2025-03-22 20:03 | disposition home or self-care (01) | DRG 100 ==
LOC: ERS 08:16 → ERHOLD 11:10 → CCU 16:50 → T4-A 03-20 13:22
PROVIDERS: ADMIT Family Medicine; ATTEND Hospitalist
PROC: 4A033R1 Measurement of Arterial Saturation, Peripheral, Percutaneous Approach (ICD-10-PCS; principal; 2025-03-18)
PROC: XX20X89 Monitoring of Brain Electrical Activity, Computer-aided Detection and Notification, New Technology Group 9 (ICD-10-PCS; 2025-03-18)
PROC: 5A1935Z Respiratory Ventilation, Less than 24 Consecutive Hours (ICD-10-PCS; 2025-03-18)
PROC: 0BH17EZ Insertion of Endotracheal Airway into Trachea, Via Natural or Artificial Opening (ICD-10-PCS; 2025-03-18)
PROC: 3E03329 Introduction of Other Anti-infective into Peripheral Vein, Percutaneous Approach (ICD-10-PCS; 2025-03-18)
DX: R56.9 Unspecified convulsions (principal); N18.6 End stage renal disease; I50.20 Unspecified systolic (congestive) heart failure; I13.2 Hypertensive heart and chronic kidney disease with heart failure and with stage 5 chronic kidney disease, or end stage renal disease; Z88.2 Allergy status to sulfonamides; Z88.8 Allergy status to other drugs, medicaments and biological substances; I25.10 Atherosclerotic heart disease of native coronary artery without angina pectoris; E11.9 Type 2 diabetes mellitus without complications; I48.91 Unspecified atrial fibrillation; Z98.890 Other specified postprocedural states; K74.60 Unspecified cirrhosis of liver; Z99.2 Dependence on renal dialysis; E78.5 Hyperlipidemia, unspecified; D69.6 Thrombocytopenia, unspecified; D72.819 Decreased white blood cell count, unspecified; D63.1 Anemia in chronic kidney disease; Z95.1 Presence of aortocoronary bypass graft; R07.89 Other chest pain; Z95.0 Presence of cardiac pacemaker
CPT/HCPCS: 31500; 36415; 36416; 51701; 70450; 70544; 70547; 70551; 71045; 76014; 80048; 80053; 80202; 80306; 80307; 81001; 82140; 82805; 83735; 84146; 84443; 84484; 85025; 86704; 86706; 86803; 87040; 87340; 87522; 90935; 93005; 94002; 94003; 96365; 96375; 99292; G0257; J0696; J1815; J1953; J2060; J2310; J2704; J3373; J7050; Q5105